=== PATIENT | female | born 1990 | race Caucasian/White ===

== ENCOUNTER 2017-08-19 07:48 | Inpatient (IN) | END 2017-08-22 17:30 | disposition home or self-care (01) | DRG 643 ==

== ENCOUNTER 2017-12-04 02:21 | Observation (INO) | END 2017-12-06 20:25 | disposition home or self-care (01) ==

== ENCOUNTER 2017-12-28 15:31 | Inpatient (IN) | END 2018-01-04 14:21 | disposition home or self-care (01) | DRG 545 ==

== ENCOUNTER 2018-01-21 02:41 | Observation (INO) | END 2018-01-22 18:20 | disposition home or self-care (01) ==

== ENCOUNTER 2018-02-12 08:25 | Observation (INO) | END 2018-02-14 16:11 | disposition home or self-care (01) ==

== ENCOUNTER 2018-02-15 00:29 | Emergency (ER) | END 2018-02-15 04:12 | disposition home or self-care (01) ==